=== PATIENT | male | born 1965 | race Hispanic/Latino ===

== ENCOUNTER 2019-02-15 12:59 | Inpatient (IN) | payer SELFPAY ==
[2019-02-15] MEDS ORDERED: PIPER/TAZO/NS 3.375gm 3.375 GM/100 ML BAG ONE (14:14)
[2019-02-15] MEDS ORDERED: NA CHLORIDE 0.9% 250 ML ONE (14:14)
[2019-02-15] MEDS ORDERED: VANCOMYCIN 1 GM/VIAL ONE (14:14)
[2019-02-15] MEDS ORDERED: NA CHLORIDE 0.9% 1,000 ML ONE (14:14)
[2019-02-15 14:54] LABS: Absolute Lymphocytes (CBC) 1.1 K/uL (0.7-4.9); Basophils % 0.3 % (0-1.3); Hematocrit 43.9 % (39.6-49.0); MPV 10.6 fL (7.6-11.3); RBC Red Blood Cell Count 5.09 M/uL (4.33-5.43)
[2019-02-15 15:01] LABS: Protime INR 1.04
[2019-02-15 15:09] LABS: ALT/SGPT 27 U/L (12-78); AST/SGOT 11 U/L (15-37); Albumin 3.6 g/dL (3.4-5.0); Alkaline Phosphatase 86 U/L (45-117); BUN Blood Urea Nitrogen 18 mg/dL (7-18); Bicarbonate 27 mmol/L (21-32); Bilirubin Direct 0.1 mg/dL (0-0.2); Bilirubin Total 0.4 mg/dL (0.2-1.0); Glucose Level 206 mg/dL (74-106); Magnesium 2.1 mg/dL (1.8-2.4); NT PRO-BNP 61 pg/mL (<125); Potassium 3.9 mmol/L (3.5-5.1); Protein, Total 7.6 g/dL (6.4-8.2); Sodium Level 138 mmol/L (136-145); Troponin (Emerg Dept Use Only) < 0.02 ng/mL (0.0-0.045)
--- NOTE | 2019-02-15 15:23 | ER ---
Nurse's Notes [facility] Name: Alexey Mcgrath Age: 53 yrs Sex: Male : 1965 Arrival Date: 02/15/2019 Time: 13:03 Bed 27 Private MD: Diagnosis: Cellulitis and acute lymphangitis of other parts of limb-failed outpatient treatment;Type 2 diabetes mellitus Presentation: 02/15 13:11 Presenting complaint: Patient states: Placed on antibiotics Wed for cellulitis to R ph leg, infection not improving and pain is getting worse, denies chills, N/V/D. Transition of care: patient was not received from another setting of care. Onset of symptoms was February 15, 2019. Risk Assessment: Do you want to hurt yourself or someone else? Patient reports no desire to harm self or others. Initial Sepsis Screen: Does the patient meet any 2 criteria? No. Patient's initial sepsis screen is negative. Care prior to arrival: None. 13:11 Method Of Arrival: Ambulatory ph 13:11 Acuity: KEYA 3 ph 13:43 Initial Sepsis Screen: Does the patient have a suspected source of infection? No. mg2 Patient's initial sepsis screen is negative. Historical: - Allergies: 13:11 No Known Allergies; ph - PMHx: 13:11 Diabetes - NIDDM; ph 13:13 Hypertension; ph - Immunization history:: Flu vaccine status is unknown. - Social history:: Smoking status: unknown. - Ebola Screening: : No symptoms or risks identified at this time. - Family history:: not pertinent. Screenin:42 Abuse screen: Denies threats or abuse. Denies injuries from another. Nutritional mg2 screening: No deficits noted. Tuberculosis screening: No symptoms or risk factors identified. Fall Risk None identified. Assessment: 13:40 General: Appears in no apparent distress. comfortable, Behavior is calm, cooperative. mg2 Pain: Complains of pain in right leg Pain does not radiate. Pain currently is 4 out of 10 on a pain scale. Quality of pain is described as aching, Pain began gradually. Neuro: Level of Consciousness is awake, alert, obeys commands, Oriented to person, place, time, situation. Cardiovascular: Capillary refill < 3 seconds Patient's skin is warm and dry. Respiratory: Airway is patent Respiratory effort is even, unlabored, Respiratory pattern is regular, symmetrical. GI: No signs and/or symptoms were reported involving the gastrointestinal system. : No signs and/or symptoms were reported regarding the genitourinary system. EENT: No signs and/or symptoms were reported regarding the EENT system. Derm: Skin is intact, is healthy with good turgor, Skin is pink, warm \T\ dry. normal, redness/cellulitis in the right lower leg. Musculoskeletal: Circulation, motion, and sensation intact. Capillary refill < 3 seconds. 19:39 Reassessment: nurse will call me back to receive the report. mg2 Vital Signs: 13:13 BP 148 / 89; Pulse 73; Resp 18; Temp 98.4; Pulse Ox 99% on R/A; ph 13:37 BP 159 / 98 LA (auto/reg); Pulse 74; Resp 18 S; Temp 98.6(O); Pulse Ox 99% on R/A; Pain jp3 4/10; 14:32 BP 155 / 80; Pulse 73; Resp 18; Pulse Ox 99% on R/A; mg2 17:08 BP 137 / 79 RA (auto/lg); Pulse 69; Resp 15 S; Pulse Ox 99% on R/A; Pain 3/10; jp3 18:45 BP 149 / 81; Pulse 70; Resp 18; Temp 98(O); Pulse Ox 97% on R/A; jp3 ED Course: 13:03 Patient arrived in ED. mr 13:13 Triage completed. ph 13:14 Arm band placed on Patient placed in waiting room, Patient notified of wait time. ph 13:33 Tay Harris RN is Primary Nurse. mg2 13:33 Ganga Roman MD is Attending Physician. kimmy 13:37 Bed in low position. Call light in reach. Side rails up X 1. Side rails up X2. Warm jp3 blanket given. Verbal reassurance given. Pulse ox on. NIBP on. 13:37 Patient maintains SpO2 saturation greater than 95% on room air. jp3 13:43 No provider procedures requiring assistance completed. mg2 14:15 Urine collected: clean catch specimen, clear, cordelia colored, EKG done, by ED staff, jp3 reviewed by Ganga Roman MD. 14:20 Missed attempt(s): 18 gauge in right antecubital area. Bleeding controlled, band aid jp3 applied, catheter tip intact. 14:30 Initial lab(s) drawn, by me, sent to lab. First set of blood cultures drawn by me. jp3 Inserted saline lock: 20 gauge in left antecubital area, using aseptic technique. Blood collected. 14:41 Procalcitonin Sent. jp3 14:45 Second set of blood cultures drawn by me. jp3 15:21 El Jesus MD is Hospitalizing Provider. kimmy 15:22 XRAY Chest (1 view) In Process Unspecified. EDMS 15:22 Tib Fib Right XRAY In Process Unspecified. EDMS 20:05 Patient admitted, IV remains in place. mg2 Administered Medications: 14:50 Drug: NS 0.9% 1000 ml Route: IV; Rate: 1 bolus; Site: left antecubital; mg2 19:15 Follow up: Response: No adverse reaction; Marked relief of symptoms; IV Status: mg2 Completed infusion; IV Intake: 1000ml 14:50 Drug: Zosyn 3.375 grams Route: IVPB; Infused Over: 60 mins; Site: left antecubital; mg2 19:14 Follow up: Response: No adverse reaction; IV Status: Completed infusion mg2 16:36 Drug: vancoMYCIN 1 grams Route: IVPB; Infused Over: 2 hrs; Site: left antecubital; mg2 19:14 Follow up: Response: No adverse reaction; IV Status: Completed infusion mg2 Intake: 19:15 IV: 1000ml; Total: 1000ml. mg2 Outcome: 15:22 Decision to Hospitalize by Provider. [facility] 19:46 Admitted to Med/surg accompanied by tech, via wheelchair, room 218, with chart, Report mg2 called to DEANNA Kwok 19:46 Condition: stable 19:46 Instructed on the need for admit. 20:05 Patient left the ED. mg2 Signatures: Dispatcher [employer] Ganga Retana MD MD cha Rivera, Mary mr Anai Giron RN RN Tay Harris RN RN mg2 Jose Daniel Goldberg jp3 Corrections: (The following items were deleted from the chart) 19:04 18:45 BP 158 / 91; Pulse 70bpm; Resp 18bpm; Pulse Ox 97% RA; Temp 98F Oral; mg2 jp3
--- NOTE | 2019-02-15 15:23 | EDPHYS ---
Physician Documentation [facility] Name: Alexey Mcgrath Age: 53 yrs Sex: Male : 1965 Arrival Date: 02/15/2019 Time: 13:03 Bed 27 Private MD: ED Physician Ganga Roman HPI: 02/15 15:17 This 53 yrs old Male presents to ER via Ambulatory with complaints of Leg Pain.kimmy 15:17 The patient presents with decreased range of motion, pain, swelling, tenderness. The kimmy complaints affect the right chamebrlain. Context: The problem was sustained at work. Onset: The symptoms/episode began/occurred 5 day(s) ago. Modifying factors: The symptoms are alleviated by elevating leg, the symptoms are aggravated by movement. Associated signs and symptoms: The patient has no apparent associated signs or symptoms. Treatment prior to arrival includes: prescription medications, keflex. Severity of symptoms: At their worst the symptoms were mild, in the emergency department the symptoms are unchanged. Historical: - Allergies: 13:11 No Known Allergies; ph - PMHx: 13:11 Diabetes - NIDDM; ph 13:13 Hypertension; ph - Immunization history:: Flu vaccine status is unknown. - Social history:: Smoking status: unknown. - Ebola Screening: : No symptoms or risks identified at this time. - Family history:: not pertinent. ROS: 15:17 Constitutional: Negative for fever, chills, and weight loss, Eyes: Negative for injury, kimmy pain, redness, and discharge, ENT: Negative for injury, pain, and discharge, Neck: Negative for injury, pain, and swelling, Cardiovascular: Negative for chest pain, palpitations, and edema, Respiratory: Negative for shortness of breath, cough, wheezing, and pleuritic chest pain, Abdomen/GI: Negative for abdominal pain, nausea, vomiting, diarrhea, and constipation, Back: Negative for injury and pain, : Negative for injury, bleeding, discharge, and swelling, Neuro: Negative for headache, weakness, numbness, tingling, and seizure, Psych: Negative for depression, anxiety, suicide ideation, homicidal ideation, and hallucinations, Allergy/Immunology: Negative for hives, rash, and allergies, Endocrine: Negative for neck swelling, polydipsia, polyuria, polyphagia, and marked weight changes, Hematologic/Lymphatic: Negative for swollen nodes, abnormal bleeding, and unusual bruising. 15:17 MS/extremity: Positive for decreased range of motion, pain, swelling, tenderness, of the left chamberlain. Exam: 15:17 Constitutional: This is a well developed, well nourished patient who is awake, alert, kimmy and in no acute distress. Head/Face: Normocephalic, atraumatic. Eyes: Pupils equal round and reactive to light, extra-ocular motions intact. Lids and lashes normal. Conjunctiva and sclera are non-icteric and not injected. Cornea within normal limits. Periorbital areas with no swelling, redness, or edema. ENT: Nares patent. No nasal discharge, no septal abnormalities noted. Tympanic membranes are normal and external auditory canals are clear. Oropharynx with no redness, swelling, or masses, exudates, or evidence of obstruction, uvula midline. Mucous membranes moist. Neck: Trachea midline, no thyromegaly or masses palpated, and no cervical lymphadenopathy. Supple, full range of motion without nuchal rigidity, or vertebral point tenderness. No Meningismus. Chest/axilla: Normal chest wall appearance and motion. Nontender with no deformity. No lesions are appreciated. Cardiovascular: Regular rate and rhythm with a normal S1 and S2. No gallops, murmurs, or rubs. Normal PMI, no JVD. No pulse deficits. Respiratory: Lungs have equal breath sounds bilaterally, clear to auscultation and percussion. No rales, rhonchi or wheezes noted. No increased work of breathing, no retractions or nasal flaring. Abdomen/GI: Soft, non-tender, with normal bowel sounds. No distension or tympany. No guarding or rebound. No evidence of tenderness throughout. Back: No spinal tenderness. No costovertebral tenderness. Full range of motion. Male : Normal genitalia with no discharge or lesions. MS/ Extremity: Pulses equal, no cyanosis. Neurovascular intact. Full, normal range of motion. Neuro: Awake and alert, GCS 15, oriented to person, place, time, and situation. Cranial nerves II-XII grossly intact. Motor strength 5/5 in all extremities. Sensory grossly intact. Cerebellar exam normal. Normal gait. Psych: Awake, alert, with orientation to person, place and time. Behavior, mood, and affect are within normal limits. 15:17 Musculoskeletal/extremity: ROM: full active range of motion, full passive range of motion, Circulation is intact in all extremities. Sensation intact. Compartment Syndrome exam of affected extremity: is normal. DVT Exam: negative Homans' sign noted on exam, no appreciated bluish discoloration, pain, swelling, tenderness, erythema, increased warmth. Vital Signs: 13:13 BP 148 / 89; Pulse 73; Resp 18; Temp 98.4; Pulse Ox 99% on R/A; ph 13:37 BP 159 / 98 LA (auto/reg); Pulse 74; Resp 18 S; Temp 98.6(O); Pulse Ox 99% on R/A; Pain jp3 4/10; 14:32 BP 155 / 80; Pulse 73; Resp 18; Pulse Ox 99% on R/A; mg2 17:08 BP 137 / 79 RA (auto/lg); Pulse 69; Resp 15 S; Pulse Ox 99% on R/A; Pain 3/10; jp3 18:45 BP 149 / 81; Pulse 70; Resp 18; Temp 98(O); Pulse Ox 97% on R/A; jp3 MDM: 13:33 Patient medically screened. [facility] 15:17 Data reviewed: vital signs, nurses notes, lab test result(s), EKG, radiologic studies, kimmy plain films. 02/15 14:10 Order name: Basic Metabolic Panel; Complete Time: 16:20 [facility] 02/15 14:10 Order name: CBC with Diff; Complete Time: 16:20 [facility] 02/15 14:10 Order name: LFT's; Complete Time: 16:20 [facility] 02/15 14:10 Order name: Magnesium; Complete Time: 16:20 [facility] 02/15 14:10 Order name: NT PRO-BNP; Complete Time: 16:20 [facility] 02/15 14:10 Order name: PT-INR; Complete Time: 16:20 [facility] 02/15 14:10 Order name: Troponin (emerg Dept Use Only); Complete Time: 16:20 [facility] 02/15 14:10 Order name: XRAY Chest (1 view); Complete Time: 16:20 [facility] 02/15 14:10 Order name: Tib Fib Right XRAY; Complete Time: 16:20 [facility] 02/15 14:10 Order name: Blood Culture Adult (2) [facility] 02/15 14:10 Order name: Procalcitonin; Complete Time: 16:20 [facility] 02/15 14:10 Order name: EKG; Complete Time: 14:13 [facility] 02/15 14:10 Order name: Cardiac monitoring; Complete Time: 14:41 [facility] 02/15 14:10 Order name: EKG - Nurse/Tech; Complete Time: 14:41 [facility] 02/15 14:10 Order name: IV Saline Lock; Complete Time: 14:41 [facility] 02/15 14:10 Order name: Labs collected and sent; Complete Time: 14:41 [facility] 02/15 14:10 Order name: O2 Per Protocol; Complete Time: 14:41 [facility] 02/15 14:10 Order name: O2 Sat Monitoring; Complete Time: 14:42 [facility] 02/15 14:10 Order name: Urine Dipstick-Ancillary (obtain specimen); Complete Time: 14:41 [facility] Administered Medications: 14:50 Drug: NS 0.9% 1000 ml Route: IV; Rate: 1 bolus; Site: left antecubital; mg2 19:15 Follow up: Response: No adverse reaction; Marked relief of symptoms; IV Status: mg2 Completed infusion; IV Intake: 1000ml 14:50 Drug: Zosyn 3.375 grams Route: IVPB; Infused Over: 60 mins; Site: left antecubital; mg2 19:14 Follow up: Response: No adverse reaction; IV Status: Completed infusion mg2 16:36 Drug: vancoMYCIN 1 grams Route: IVPB; Infused Over: 2 hrs; Site: left antecubital; mg2 19:14 Follow up: Response: No adverse reaction; IV Status: Completed infusion mg2 Disposition: 02/15/19 15:22 Hospitalization ordered by El Jesus for Inpatient Admission. Preliminary diagnosis are Cellulitis and acute lymphangitis of other parts of limb - failed outpatient treatment, Type 2 diabetes mellitus. - Bed requested for Telemetry/MedSurg (Inpatient). - Status is Inpatient Admission. mg2 - Condition is Stable. - Problem is new. - Symptoms have improved. UTI on Admission? No Signatures: Dispatcher [employer] EDGanga Godoy MD MD cha Pinkerton, Shawna sp Hall, Patricia, RN RN Tay Harris RN RN mg2 Corrections: (The following items were deleted from the chart) 18:18 15:22 Hospitalization Ordered by El Jesus MD for Inpatient Admission. Preliminary sp diagnosis is Cellulitis and acute lymphangitis of other parts of limb - failed outpatient treatment; Type 2 diabetes mellitus. Bed requested for Telemetry/MedSurg (Inpatient). Status is Inpatient Admission. Condition is Stable. Problem is new. Symptoms have improved. UTI on Admission? No. kimmy 20:05 18:18 02/15/2019 15:22 Hospitalization Ordered by El Jesus MD for Inpatient mg2 Admission. Preliminary diagnosis is Cellulitis and acute lymphangitis of other parts of limb - failed outpatient treatment; Type 2 diabetes mellitus. Bed requested for Telemetry/MedSurg (Inpatient). Status is Inpatient Admission. Condition is Stable. Problem is new. Symptoms have improved. UTI on Admission? No. sp
[2019-02-15] MEDS ORDERED: ONDANSETRON 4 MG/2 ML VIAL IV PRN (16:03)
--- NOTE | 2019-02-15 16:10 | RAD REPORT ---
EXAM DESCRIPTION: RAD - Chest Single View - 02/15/2019 3:21 pm CLINICAL HISTORY: Cough COMPARISON: None. TECHNIQUE: AP portable chest image was obtained 1423 hour . FINDINGS: Lung volumes are low. No acute lung parenchymal process. Heart and vasculature are normal. No measurable pleural effusion and no pneumothorax. No acute bony abnormality seen. No acute aortic findings suspected. IMPRESSION: Limited portable study without acute cardiopulmonary finding.
--- NOTE | 2019-02-15 16:11 | RAD REPORT ---
EXAM DESCRIPTION: RAD - Tib Fib Right - 02/15/2019 3:21 pm CLINICAL HISTORY: Right leg pain, cellulitis COMPARISON: None. FINDINGS: No fracture is identified. There is no dislocation or periosteal reaction noted. No acute or suspicious bony finding. Mild anterior soft tissue swelling present. No air or foreign body. IMPRESSION: Soft tissue swelling with no foreign body. No significant right leg finding otherwise noted.
[2019-02-15] MEDS: INSULIN -REGULAR HUMAN 50 UNIT/0.5 ML ML SQ SCH ×2 (16:30→21:00)
--- NOTE | 2019-02-15 19:08 | P.HP ---
Patient History Date of Service: 02/15/19 Reason for admission: Right leg cellulitis History of Present Illness: This is a 53-year-old male with history of diabetes and hypertension admitted for right leg pain and swelling, failed outpatient treatment. Per patient, he noted that for the past 5-6 days he has been having this worsening of right leg pain and redness on his chamberlain area. He went to the primary care physician's office today after started, was given Keflex. He did this for 3 days. Despite the medication, his swelling and pain got worse, where it was actually waking him up out of sleep. He says that he had some chills that he has been taking ibuprofen which has been helping the chills. He denies any other fevers, chest pain, shortness of breath, headache, dizziness, vision changes, headaches, GI or complaints. He therefore brought himself to the ER. In the ER, his blood pressure was 148/89, heart rate is 73, respiration of 18, afebrile at 98.4, satting 99% on room air. His labs were fairly unremarkable except for platelet count 150. His tib-fib x-ray showed soft tissue swelling otherwise was normal. He received Zosyn, vancomycin IV fluids in the ER. At the time of my exam, is alert oriented x3, in no acute distress and hemodynamically stable. He was admitted for failed outpatient treatment, for IV antibiotics. Allergies No Known Allergies Allergy (Verified 02/15/19 17:03) Home medications list reviewed: Yes - Past Medical/Surgical History Diabetic: Yes -: Diabetes mellitus type 2, [id number] -: Hypertension Psychosocial/ Personal History: Lives at home with his Review of Systems 10-point ROS is otherwise unremarkable Physical Examination - Physical Exam General: Alert, In no apparent distress, Oriented x3 HEENT: Atraumatic, PERRLA, Mucous membr. moist/pink, EOMI, Sclerae nonicteric Neck: Supple, 2+ carotid pulse no bruit, No LAD, Without JVD or thyroid abnormality Respiratory: Clear to auscultation bilaterally, Normal air movement Cardiovascular: Regular rate/rhythm, Normal S1 S2 Gastrointestinal: Normal bowel sounds, No tenderness Musculoskeletal: No tenderness Integumentary: Tenderness/swelling, Erythema, Warmth (Right lower extremity, chamberlain) Neurological: Normal gait, Normal speech, Normal strength at 5/5 x4 extr, Normal tone, Normal affect Lymphatics: No axilla or inguinal lymphadenopathy - Studies Laboratory Data (last 24 hrs) 02/15/19 14:30: PT 12.2, INR 1.04 02/15/19 14:30: WBC 9.2, Hgb 14.7, Hct 43.9, Plt Count 150 L 02/15/19 14:30: Sodium 138, Potassium 3.9, BUN 18, Creatinine 0.92, Glucose 206 H, Magnesium 2.1, Total Bilirubin 0.4, AST 11 L, ALT 27, Alkaline Phosphatase 86 Assessment and Plan - Problems (Diagnosis) (1) Cellulitis of right lower extremity Current Visit: Yes Status: Acute Plan: Right lower extremity cellulitis -monitor right lower extremity, Alfredo cellulitis area -IV antibiotics with vancomycin and Zosyn -cultures pending -monitor vital signs, monitor for sepsis. No evidence of sepsis at this time -continue IV fluids at maintenance rate (2) Failure of outpatient treatment Current Visit: Yes Status: Acute (3) Diabetes mellitus Current Visit: No Status: Chronic Plan: Accu-Chek, mild sliding scale insulin. 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 Discharge Plan: Home Plan to discharge in: 48 Hours - Advance Directives Does patient have a Living Will: No Does patient have a Durable POA for Healthcare: No Time Spent Managing Pts Care (In Minutes): 55
[2019-02-15] MEDS: PIPER/TAZO/NS 3.375gm 3.375 GM/100 ML BAG IVPB SCH (23:00)
[2019-02-15] MEDS ORDERED: PIPERACIL/TAZO 3.375 GM VIAL IV ONE (23:34)
[2019-02-15] MEDS ORDERED: NA CHLORIDE 0.9% 100 ML ONE (23:39)
[2019-02-16] MEDS ORDERED: VANCOMYCIN 1 GM/VIAL ONE ×2 (01:08)
[2019-02-16] MEDS ORDERED: NA CHLORIDE 0.9% 0 ML ONE (01:20)
[2019-02-16] MEDS ORDERED: NA CHLORIDE 0.9% 500 ML ONE (01:55)
[2019-02-16] MEDS ORDERED: VANCOMYCIN 1.5 GM in NA CHLORIDE 0.9% 500 ML IVPB SCH (02:00)
[2019-02-16 02:41] LABS: Urine Appearance CLEAR; Urine Bilirubin NEGATIVE (NEG); Urine Blood NEGATIVE (NEG); Urine Color YELLOW; Urine Glucose 3+ (NEG); Urine Protein NEGATIVE (NEG); Urine Specific Gravity >=1.030 (1.005-1.030)
[2019-02-16 03:13] LABS: Urine Microscopic Reflex NO UMIC
[2019-02-16 06:32] LABS: Absolute Lymphocytes (CBC) 0.9 K/uL (0.7-4.9); Basophils % 0.3 % (0-1.3); MPV 10.8 fL (7.6-11.3); RBC Red Blood Cell Count 4.61 M/uL (4.33-5.43)
[2019-02-16 06:36] LABS: ALT/SGPT 24 U/L (12-78); AST/SGOT 12 U/L (15-37); Albumin 3.2 g/dL (3.4-5.0); Alkaline Phosphatase 73 U/L (45-117); BUN Blood Urea Nitrogen 15 mg/dL (7-18); Bicarbonate 28 mmol/L (21-32); Bilirubin Total 0.6 mg/dL (0.2-1.0); Glucose Level 152 mg/dL (74-106); Phosphorus 3.7 mg/dL (2.5-4.9); Potassium 4.4 mmol/L (3.5-5.1); Protein, Total 6.8 g/dL (6.4-8.2); Sodium Level 140 mmol/L (136-145)
[2019-02-16] MEDS: PIPER/TAZO/NS 3.375gm 3.375 GM/100 ML BAG IVPB SCH (07:00)
[2019-02-16] MEDS: INSULIN -REGULAR HUMAN 50 UNIT/0.5 ML ML SQ SCH ×2 (07:30→11:30)
[2019-02-16] MEDS ORDERED: ENOXAPARIN 40 MG/0.4 ML SQ SCH (09:00)
[2019-02-16] MEDS ORDERED: PIPER/TAZO/NS 3.375gm 3.375 GM/100 ML BAG IVPB SCH (09:00)
--- NOTE | 2019-02-16 10:44 | EKG ---
Test Date: 2019-02-15 Test Time: 14:24:14 Pool Nurse: MG MEASUREMENT RESULTS: Intervals: Rate: 83 NM: 142 QRSD: 94 QT: 362 QTc: 425 [place]: P: 66 NM: 142 QRS: 30 T: 47 INTERPRETIVE STATEMENTS: Normal sinus rhythm Normal ECG No previous ECG available for comparison Electronically Signed On 02-16-19 10:43:16 CDT by Juan Antonio Mustafa
--- NOTE | 2019-02-16 11:51 | P.DS ---
Admission Date: 02/15/19 Discharge Date: 02/16/19 Disposition: ROUTINE DISCHARGE Discharge Condition: GOOD Reason for Admission: Right leg cellulitis - Problems (1) Cellulitis of right lower extremity Current Visit: Yes Status: Acute (2) Failure of outpatient treatment Current Visit: Yes Status: Acute (3) Diabetes mellitus Current Visit: No Status: Chronic Qualifiers: Diabetes mellitus type: type 2 Diabetes mellitus fdc insulin use: without termite exterminator helper use Diabetes mellitus complication status: with hyperglycemia Qualified Code(s): E11.65 - Type 2 diabetes mellitus with hyperglycemia (4) Hypertension Current Visit: No Status: Chronic Qualifiers: Hypertension type: essential hypertension Qualified Code(s): I10 - Essential (primary) hypertension Brief History of Present Illness: This is a 53-year-old male with history of diabetes and hypertension admitted for right leg pain and swelling, failed outpatient treatment. Per patient, he noted that for the past 5-6 days he has been having this worsening of right leg pain and redness on his chamberlain area. He went to the primary care physician's office today after started, was given Keflex. He did this for 3 days. Despite the medication, his swelling and pain got worse, where it was actually waking him up out of sleep. He says that he had some chills that he has been taking ibuprofen which has been helping the chills. He denies any other fevers, chest pain, shortness of breath, headache, dizziness, vision changes, headaches, GI or complaints. He therefore brought himself to the ER. In the ER, his blood pressure was 148/89, heart rate is 73, respiration of 18, afebrile at 98.4, satting 99% on room air. His labs were fairly unremarkable except for platelet count 150. His tib-fib x-ray showed soft tissue swelling otherwise was normal. He received Zosyn, vancomycin IV fluids in the ER. At the time of my exam, is alert oriented x3, in no acute distress and hemodynamically stable. He was admitted for failed outpatient treatment, for IV antibiotics. Hospital Course: patient was admitted. He was started on IV antibiotics. His symptoms improved. He was clinically doing well. His labs remained stable and his vital signs remained stable. Prior to discharge, he was AAOx3, in no acute distress and symptoms had improved. His diagnosis/treatment plan was explained to him. All questions were answered and he verbalized understanding. He was then discharged home in a safe and stable manner. He remained stable otherwise throughout the stay. Vital Signs/Physical Exam: Temp Pulse Resp BP Pulse Ox 97.1 F 60 20 122/72 97 02/16/19 08:00 02/16/19 08:00 02/16/19 08:00 02/16/19 08:00 02/16/19 08:00 General: Alert, In no apparent distress, Oriented x3 HEENT: Atraumatic, PERRLA, EOMI Neck: Supple, JVD not distended Respiratory: Clear to auscultation bilaterally, Normal air movement Cardiovascular: Regular rate/rhythm, Normal S1 S2 Gastrointestinal: Normal bowel sounds, No tenderness Musculoskeletal: No tenderness Integumentary: No rashes, Other (Cellulitis on right chamberlain, improved. Swelling resovled. Not warm to touch. ) Neurological: Normal speech, Normal tone, Normal affect Lymphatics: No axilla or inguinal lymphadenopathy Laboratory Data at Discharge: WBC 6.2 K/uL (4.3-10.9) D 02/16/19 06:04 Hgb 13.4 g/dL (13.6-17.9) L 02/16/19 06:04 Hct 40.0 % (39.6-49.0) 02/16/19 06:04 Plt Count 159 K/uL (152-406) 02/16/19 06:04 PT 12.2 SECONDS (9.5-12.5) 02/15/19 14:30 INR 1.04 02/15/19 14:30 Sodium 140 mmol/L (136-145) 02/16/19 06:04 Potassium 4.4 mmol/L (3.5-5.1) 02/16/19 06:04 BUN 15 mg/dL (7-18) 02/16/19 06:04 Creatinine 0.88 mg/dL (0.55-1.3) 02/16/19 06:04 Glucose 152 mg/dL (74-106) H 02/16/19 06:04 Phosphorus 3.7 mg/dL (2.5-4.9) 02/16/19 06:04 Magnesium 2.1 mg/dL (1.8-2.4) 02/15/19 14:30 Total Bilirubin 0.6 mg/dL (0.2-1.0) 02/16/19 06:04 AST 12 U/L (15-37) L 02/16/19 06:04 ALT 24 U/L (12-78) 02/16/19 06:04 Alkaline Phosphatase 73 U/L (45-117) 02/16/19 06:04 Home Medications: Glipizide [Glucotrol] 10 mg PO BID 02/15/19 Lisinopril 20 mg PO DAILY 02/15/19 Metformin HCl [Glucophage] 1,000 mg PO BID 02/15/19 Clindamycin HCl [Cleocin HCl] 300 mg PO TID #21 capsule 02/16/19 New Medications: Clindamycin HCl [Cleocin HCl] 300 mg PO TID #21 capsule Patient Discharge Instructions: Please follow up with your Primary doctor at the [facility] in 2-3 days as discussed. Please return to the Emergency room if symptoms worsen, as discussed. New medication: Clindamycin, an antibiotic for your infection. Diet: AHA Activity: Ad tone Time spent managing pt's care (in minutes): 55
[2019-02-16] MEDS ORDERED: IBUPROFEN 200 MG TAB PO ONE (12:00)
[2019-02-16] MEDS ORDERED: VANCOMYCIN 1.25 GM in NA CHLORIDE 0.9% 250 ML IVPB SCH (14:00)
== END 2019-02-16 13:00 | disposition home or self-care (01) | DRG 603 ==
LOC: ER 12:59 → ERHOLD 16:09 → 2ND 19:46
PROVIDERS: ADMIT Family Medicine; ATTEND Family Medicine
DX: L03.115 Cellulitis of right lower limb (principal); E11.65 Type 2 diabetes mellitus with hyperglycemia; I10 Essential (primary) hypertension
CPT/HCPCS: 36415; 71045; 80048; 80053; 80076; 81003; 82962; 83735; 83880; 84100; 84145; 84484; 85025; 85610; 87040; 93005; 94760; 96365; 96366; 96368; 99285; J1650; J2543; J7030